=== PATIENT | male | born 1945 | race Caucasian/White ===

== ENCOUNTER 2023-03-10 08:21 | Outpatient (CLI) | payer OTHER | END 2023-03-10 08:26 | disposition home or self-care (01) | LOC: NUCLEAR 08:21 | PROVIDERS: ATTEND Internal Medicine | DX: I65.29 Occlusion and stenosis of unspecified carotid artery (principal) ==

== ENCOUNTER 2024-07-18 04:24 | Inpatient (IN) | payer OTHER ==
[~2024-07-18] VITALS: Ht 231.1 cm; Wt 66.7 kg
--- NOTE | 2024-07-18 04:43 | NUR ---
PACIENTE DESORIENTADO EN LUGAR Y TIEMPO, ACOMPAANDO DE ESPOSA. ESTA REFIERE JENA EN LA TARDE COMENZO CON PATRON DE VOMITOS (3) Y FUE LLEVADO A CDT DONDE REFIERE LE REALZIARON MUESTRAS Y TENIA SODIO Y CLORO ALTERADO ANDRADE REFIERE NO LE ENTREGARON RESULTADOS DE LABORATORIO.
[2024-07-18] MEDS ORDERED: ZESTRIL10 M1 (04:46)
[2024-07-18] MEDS ORDERED: 0.9 % SODIUM CHLORIDE 1,000 ML IV SCH ×2 (05:00→18:45)
--- NOTE | 2024-07-18 05:10 | NUR ---
PACIENTE EVALUADO POR QUIEN [place] [facility], RN BERMAN EDUCA ACERCA DEL MISMO Y REFIERE ENTENDER. SE CANALIZA Y COLECTAN MUESTRAS DE LABORATORIO MEDIANTE MEDIDAS ASEPTICAS.
[2024-07-18 07:43] LABS: HEMATOCRIT 40.1 % (39.0-48.0); HEMOGLOBIN 14.2 g/dL (13-16.00); MEAN CELL VOLUME 91.6 fL (80.0-100.00); MEAN CORPUSCULAR HEMOGLOBIN 32.5 pg (27.00-32.0); MEAN CORPUSCULAR HGB CONC 35.5 g/dl (32.0-36.0); PLATELET COUNT 156 K/uL (150-450); RED BLOOD COUNT 4.38 M/uL (4.00-6.00)
[2024-07-18 07:52] LABS: URINE APPEARANCE Clear; URINE BILIRRUBIN Negative (NEGATIVE); URINE BLOOD Negative; URINE COLOR Yellow; URINE GLUCOSE Negative (NEGATIVE); URINE KETONE 15 (NEGATIVE); URINE LEUKOCYTE Negative; URINE NITRATE Negative; URINE PROTEIN Negative (NEGATIVE); URINE UROBILINOGEN 0.2 E.U./dl
[2024-07-18 07:54] LABS: URINE RBC 13.4 uL (0.0-20.8)
[2024-07-18 08:04] LABS: URINE BACTERIA 2.5 uL (0.0-1933); URINE EPITHELIAL CELLS 0.7 uL (0.0-38.8); URINE WBC 0.4 uL (0.0-23.2)
[2024-07-18] MEDS ORDERED: BUDESONIDE 0.5 MG/2 ML AMPUL.NEB IH STA (08:07)
[2024-07-18] MEDS ORDERED: LEVALBUTEROL HCL 1.25 MG/3 ML SOLUTION IH STA (08:07)
[2024-07-18] MEDS ORDERED: METHYLPREDNISOLONE SOD SUCC 125 MG VIAL IV STA (08:08)
[2024-07-18] MEDS ORDERED: AZITHROMYCIN 500 MG VIAL IV STA (08:09)
[2024-07-18 08:17] LABS: ALBUMIN 3.7 gm/dL (3.4-5.0); BILIRUBIN TOTAL 0.69 mg/dL (0.3-1.2); CALCIUM 8.7 mg/dL (8.5-10.1); CREATININE SERUM 0.77 mg/dL (0.70-1.30); GFR 97.21; GLOBULINA 3.2 G/DL (2.4-3.5); POTASSIUM 4.42 mEq/L (3.5-5.1); TOTAL PROTEIN 6.9 gm/dL (6.4-8.2)
[2024-07-18] MEDS ORDERED: ALBUTEROL SULFATE 8.5 GM HFA.AER.AD IH STA (09:25)
[2024-07-18 10:49] LABS: ALBUMIN 3.5 gm/dL (3.4-5.0); BILIRUBIN TOTAL 0.64 mg/dL (0.3-1.2); CALCIUM 8.7 mg/dL (8.5-10.1); CREATININE SERUM 0.87 mg/dL (0.70-1.30); GFR 84.43; GLOBULINA 3.7 G/DL (2.4-3.5); POTASSIUM 4.33 mEq/L (3.5-5.1); TOTAL PROTEIN 7.2 gm/dL (6.4-8.2)
[2024-07-18 11:02] LABS: ABG PH 7.433 (7.35-7.45); ABG PO2 86.1 mmHg (80-100); ABG pCO2 34.4 mmHg (35-45); BASE EXCESS -1.1 mmol/l; BICARBONATE 22.4 mmol/l (23-25); SaO2 96.8 %; Tco2 23.5 mmol/l; allen test SATISFACTORY; o2 21 %; puncture site RADIAL RIGHT
--- NOTE | 2024-07-18 15:47 | NUR ---
SE RECIBE PTE ALERTA Y ORIENTADO X3. EN CAMA BAJA CON BARANDAS ELEVADAS POR SEGURIDAD. CANALIZACION PATENTE, JULIANNA DE EDEMA Y ERITEMA, RECIBIENDO IV FLUIDS. PEND CONSULTA CON DR VESNA DUGAN
[2024-07-18] MEDS ORDERED: IPRATROPIUM BROMIDE 0.5 MG/2.5 ML AMPUL.NEB IH SCH (18:32)
[2024-07-18] MEDS ORDERED: LORazepam 2 MG/ML VIAL IM ONE (18:45)
[2024-07-18] MEDS ORDERED: ACETAMINOPHEN 500 MG GEL..CAP PO PRN (18:45)
[2024-07-18] MEDS ORDERED: AZITHROMYCIN 500 MG in DEXTROSE 5 % IN WATER 250 ML IV SCH (18:45)
[2024-07-18] MEDS ORDERED: LORazepam 2 MG/ML VIAL IV ONE (20:15)
[2024-07-18 20:57] LABS: D DIMER 0.61 MG/L; INR 1.03; PROTHROMBIN TIME 11.2 SECONDS (9.0-11.5)
[2024-07-18 21:03] LABS: FERRITIN 200.7 NG/ML (26-388)
[2024-07-18 21:05] LABS: C-REACTIVE PROTEIN 1.55 MG/DL (0.00-0.29)
[2024-07-18 23:00] VITALS: BP 129/64; O2SAT 100
[2024-07-19 00:02] VITALS: BP 140/69
[2024-07-19] MEDS ORDERED: DIPHENHYDRAMINE HCL 50 MG/ML VIAL 1ML IV ONE (01:30)
[2024-07-19 07:17] VITALS: BP 148/62; O2SAT 96
[2024-07-19 07:33] LABS: MAGNESIUM 1.9 mg/dL (1.8-2.4); PHOSPHOROUS 2.7 mg/dL (2.5-4.9); TSH 0.499 uIU/mL (0.358-3.74)
[2024-07-19] MEDS ORDERED: ENOXAPARIN SODIUM 40 MG/0.4 ML SYRINGE SUBCUTANEO SCH (09:00)
[2024-07-19] MEDS ORDERED: ASCORBIC ACID 500 MG TABLET PO SCH (09:00)
[2024-07-19] MEDS ORDERED: LISINOPRIL 5 MG TABLET PO SCH (09:00)
[2024-07-19] MEDS ORDERED: FAMOTIDINE/PF 20 MG in 0.9 % SODIUM CHLORIDE 8 ML IV PUSH SCH (09:00)
[2024-07-19 11:17] LABS: URINE APPEARANCE Clear; URINE BILIRRUBIN Negative (NEGATIVE); URINE BLOOD Negative; URINE COLOR Yellow; URINE GLUCOSE Negative (NEGATIVE); URINE KETONE Trace (NEGATIVE); URINE LEUKOCYTE Negative; URINE NITRATE Negative; URINE PROTEIN Negative (NEGATIVE); URINE RBC 6.2 uL (0.0-20.8); URINE UROBILINOGEN 0.2 E.U./dl
[2024-07-19 11:18] LABS: URINE BACTERIA 3.7 uL (0.0-1933); URINE EPITHELIAL CELLS 1.2 uL (0.0-38.8); URINE WBC 0.6 uL (0.0-23.2)
[2024-07-19] MEDS ORDERED: REMDESIVIR 100 MG VIAL IV SCH (12:00)
[2024-07-19] MEDS ORDERED: PANTOPRAZOLE SODIUM 40 MG TABLET.DR PO SCH ×2 (15:32→16:19)
[2024-07-19] MEDS ORDERED: LORazepam 2 MG/ML VIAL IV PRN (15:45)
[2024-07-19] MEDS ORDERED: SUCRALFATE 1 G TABLET PO SCH (17:00)
[2024-07-19] MEDS ORDERED: BUDESONIDE 0.5 MG/2 ML AMPUL.NEB IH SCH (17:00)
[2024-07-19] MEDS ORDERED: GUAIFENESIN 200 MG/10 ML BLIST.PACK PO SCH (18:00)
[2024-07-19 18:35] LABS: CALCIUM 8.9 mg/dL (8.5-10.1); CREATININE SERUM 0.97 mg/dL (0.70-1.30); GFR 74.47; POTASSIUM 4.51 mEq/L (3.5-5.1)
[2024-07-19 18:40] LABS: MYCOPLASMA PNEUMONIAE IGM NON REACTIVE (NO REACTIVE)
[2024-07-20 00:15] VITALS: BP 157/80; O2SAT 96
[2024-07-20 02:13] LABS: MEAN CELL VOLUME 94.4 fL (80.0-100.00); MEAN CORPUSCULAR HEMOGLOBIN 31.4 pg (27.00-32.0); MEAN CORPUSCULAR HGB CONC 33.3 g/dl (32.0-36.0); PLATELET COUNT 151 K/uL (150-450); RED BLOOD COUNT 4.13 M/uL (4.00-6.00)
[2024-07-20 02:44] LABS: ALBUMIN 3.2 gm/dL (3.4-5.0); BILIRUBIN TOTAL 0.3 mg/dL (0.3-1.2); CALCIUM 8.4 mg/dL (8.5-10.1); CREATININE SERUM 0.96 mg/dL (0.70-1.30); GFR 75.36; GLOBULINA 3.3 G/DL (2.4-3.5); MAGNESIUM 1.9 mg/dL (1.8-2.4); PHOSPHOROUS 2.4 mg/dL (2.5-4.9); POTASSIUM 4.4 mEq/L (3.5-5.1); TOTAL PROTEIN 6.5 gm/dL (6.4-8.2)
[2024-07-20 03:04] VITALS: BP 134/87; O2SAT 98
[2024-07-20 08:43] VITALS: BP 130/80
[2024-07-20] MEDS ORDERED: REMDESIVIR 100 MG VIAL IV SCH (09:00)
[2024-07-20] MEDS ORDERED: LISINOPRIL 10 MG TABLET PO SCH (09:00)
[2024-07-20] MEDS ORDERED: TUSSIN MUC100 MG/5 M PO (12:03)
[2024-07-20] MEDS ORDERED: PANTOPRAZOLE SO40 MG PO (12:03)
[2024-07-20] MEDS ORDERED: LISINOPRIL10 MG PO (12:08)
== END 2024-07-20 13:23 | disposition home or self-care (01) | DRG 177 ==
LOC: ER 04:24 → SEC-K 19:41 → SURH 19:41 → SEC-K 21:05 → SURH 07-19 16:24 → SEC-K 07-19 19:19 → MEDJ 07-20 01:09
PROVIDERS: General Practice; ADMIT Internal Medicine; ATTEND Internal Medicine
PROC: BW28ZZZ Computerized Tomography (CT Scan) of Head (ICD-10-PCS; principal; 2024-07-18)
PROC: BW24ZZZ Computerized Tomography (CT Scan) of Chest and Abdomen (ICD-10-PCS; 2024-07-18)
PROC: XW033E5 Introduction of Remdesivir Anti-infective into Peripheral Vein, Percutaneous Approach, New Technology Group 5 (ICD-10-PCS; 2024-07-20)
DX: U07.1 COVID-19 (principal); G93.41 Metabolic encephalopathy; E87.1 Hypo-osmolality and hyponatremia; R41.82 Altered mental status, unspecified; I10 Essential (primary) hypertension